=== PATIENT | male | born 1990 | race Caucasian/White ===

== ENCOUNTER 2016-12-11 17:37 | Emergency (ER) ==
[2016-12-11] MEDS ORDERED: ZOLOFT50 MG PO (17:43)
== END 2016-12-11 18:20 | disposition left against medical advice (07) ==
LOC: SED 17:37
DX: Z53.21 Procedure and treatment not carried out due to patient leaving prior to being seen by health care provider (principal)
CPT/HCPCS: 90471; 96361; 96374; 96375; 99285

== ENCOUNTER 2016-12-15 11:58 | Emergency (ER) | payer OTHER ==
[~2016-12-15 11:58] MED LIST: ZOLOFT50 MG PO
== END 2016-12-15 13:53 | disposition home or self-care (01) ==
LOC: SED 11:58
DX: G43.909 Migraine, unspecified, not intractable, without status migrainosus (principal); F17.200 Nicotine dependence, unspecified, uncomplicated
CPT/HCPCS: 96372; 99283; J0780; J1200

== ENCOUNTER → 2017-02-04 | Outpatient (CLI) | payer OTHER ==
--- NOTE | ~2017-02-04 | EE ---
Unit #: [id number] #: [id number] Patient: CAMERON LEHMAN [id number] [address] [id number] [id number] O MR#: [id number] NAME: CAMERON LEHMAN : 1990 SEX: M STUDY DATE/TIME: 02/04/2017 UNIT: CEEG ROOM: STUDY DESCRIPTION: EEG Attending Physician: Sahil Birch M.D. Referring Physician: Sahil Birch M.D. Primary Care Physician: Sahil Birch M.D. NEURODIAGNOSTICS REPORT EXAM EEG REASON FOR THE STUDY Migraines. EEG DESCRIPTION This is an outpatient, digitally recorded multi-montage adult EEG with leads placed according to the International 10-20 System. Hyperventilation and photic stimulation was attempted. With the patient fully aroused, there is 9-10 Hz posterior dominant alpha rhythm which is symmetric and attenuates with eyes opening. The patient did become drowsy and later on stage 2 sleep was seen. There was some beta artifact. Hyperventilation was attempted but I did not see any significant changes. Photic stimulation was attempted in intermittent stepwise pattern up to the flash frequency of 30 Hz but I did not see any driving, asymmetry, paroxysmal activity. No clinical events were seen. IMPRESSION Essentially normal adult awake and asleep EEG. An EEG like this does not rule out epilepsy. Clinical correlation is recommended. Beta artifact could be medication related so please clinically correlate. Dictated by... Gus Nugent/kraig TD: 02/06/2017 09:03 JOB #: [id number] Unit #: [id number] #: [id number] Patient: CAMERON LEHMAN NEURODIAGNOSTICS REPORT Page 1 of 1 X Antonella Hernandez MD NEURODIAGNOSTICS REPORT
== END | disposition home or self-care (01) ==
LOC: CEEG 08:19
DX: G43.909 Migraine, unspecified, not intractable, without status migrainosus (principal)
CPT/HCPCS: 95816